=== PATIENT | female | born 1970 | race Caucasian/White ===

== ENCOUNTER 2022-12-24 14:08 | Emergency (ER) | payer BC, SELFPAY ==
[2022-12-24 14:12] VITALS: BP 115/74; PULSE 82; RESP 18; TEMP 36.3; O2SAT 100; BMI 18.5
--- NOTE | 2022-12-24 15:08 | ED_ITS ---
HPI - General Adult General Time Seen by Provider: 15:08 Date Seen: 12/24/22 Chief complaint: Nausea/Vomiting Stated complaint: Vomiting, lethargic, foggy eyes Time Seen by Provider: 12/24/22 15:05 Source: patient and RN notes reviewed Mode of arrival: ambulatory Limitations: no limitations History of Present Illness HPI narrative: This 52-year-old female was referred by clinic for head imaging and evaluation from symptoms earlier this week. She states she had been to [place] over the weekend, was down there for 4 days visiting her dad whom is in hospice for me tastatic kidney cancer. She does note that she has a sister who from brain cancer as well. She came home Tuesday, had a normal dinner Tuesday, went to bed. She woke in the night with severe headache, started having nausea vomiting and vomited all day and Tuesday. She did sleep Tuesday night. Tuesday she still was not feeling very good, was going to have a friend take her into urgent care. She ended up falling back asleep and when she woke up felt better, stayed home that day. She does note she is feeling somewhat shaky, she did have a bowel movement that was normal the day that she was vomiting all day on Tuesday. No fevers. Her head still does not feel right but it certainly not as bad as what she felt initially. There has been no incoordination, no falls, no motor weakness of any of her extremities. She feels like her vision is foggy, feels like it is both eyes. She has been able to increase her oral intake, no vomiting any longer. Maybe just a sense of slight nausea. She actually had an appointment at the clinic today, they contacted her about 2 hours later told her to come to the ER so that she would not have to be referred for imaging. She has not done any testing for COVID or influenza. Related Data Home Medications Medication Instructions Recorded Confirmed albuterol sulfate 90 mcg/actuation 2 puff inhalation Q6H PRN wheezing 12/24/22 12/24/22 aerosol inhaler budesonide-formoterol HFA 160 2 puff inhalation BID 12/24/22 12/24/22 mcg-4.5 mcg/actuation aerosol inhaler levothyroxine 112 mcg tablet 112 mcg PO QAM 12/24/22 12/24/22 liothyronine 5 mcg tablet 5 mcg PO DAILY 12/24/22 12/24/22 Allergies Allergy/AdvReac Type Severity Reaction Status Date / Time No Known Drug Allergies Allergy Verified 12/24/22 14:16 Review of Systems Status of ROS: Reports: 6 or more systems reviewed and unremarkable except as noted in History and below Exam Const: Vital Signs, click to edit/add: Vital Signs - 24 hr 12/24/22 14:12 Temperature 97.4 F L Pulse Rate [Right Pulse Oximeter] 82 Respiratory Rate 18 Blood Pressure [Ri ght Upper Arm] 115/74 Pulse Oximetry 100 Oxygen Delivery Me thod Room Air 52-year-old female is alert, interactive , very well kept, ambulatory in the ED with normal gait. Pupils equal round reactive, sclera clear, conjugate gaze. Symmetrical facial function. TMs canals normal. Oropharynx are mucosa, no exudates or erythema, normal posterior pharynx, dentition good repair. Neck is supple, no cervical adenopathy, no masses noted. Lungs are clear, good air entry, no wheezing or crackles. CV regular rate and rhythm, no murmur, normal S1-S2, no S3-S4. Abdomen is soft, flat, nondistended, no organomegaly, no masses. Strength is 5/5 and symmetric, normal light touch sensation, no tremors or dysmetria noted. Documenting provider has reviewed patient's vital signs: yes Course Course ED Course: Went over the differential with patient as far as headaches from infectious etiology to tumors to such entities as sinus veinous thrombosis. My overall impression is that she was suffering from a viral syndrome and just is not completely back to baseline. Discussed options. She would really like to proceed with a head CT, I do think it is reasonable in this situation she is quite worried and was told this was likely by the clinic. I doubt any concerning finding such as a brain bleed, infectious etiology such as meningitis or encephalitis, she is too clinically well at this time. As far as tumors, did discuss that they can present with nausea and vomiting but more frequently we see specific neurologic changes. It is always possible to have a small tumor that is not seen on initial plain imaging on CT. She does understand that. I do not feel we have evidence here for needing advanced imaging with an MRI. We did discuss blood work, she would like to do that, she did provide a urinalysis, will see if there is ketones or any evidence of infection. She declines an IV and IV fluids. Reevaluation(s) Time of Reevaluation #1: 17:53 Reevaluation #1: Have reviewed with patient her head CT, did give her copy of the report. We did review the finding of the right maxillary sinus changes. She is not having acute active symptoms but does note that she gets a little bit more chronic drainage out of the right naris. We did discuss maybe trying a nasal steroid, follow up with her primary for further discussion of this. We reviewed that her white count was low, could support a viral infection. She wanted to know if possibly her headache could have been a migraine, that is certainly in the differential with the migraine actually causing the nausea vomiting. It is also possible that she had a gastrointestinal illness that was associated with a severe migraine and she is improved. At this time, there is nothing further emergent to workup or to evaluate, she is improved from that initial illness/episode. Would have her follow up with her primary care provider. Did write down her white blood count, and she thinks that it may have come back low before. This is something that certainly could be rechecked in we have reviewed that. Vital Signs Vital signs: Initial Vital Signs Temperature 97.4 F L 12/24/22 14:12 Temperature Source Temporal Artery Scan 12/24/22 14:12 Pulse Rate 82 12/24/22 14:12 Respiratory Rate 18 12/24/22 14:12 Blood Pressure 115/74 12/24/22 14:12 Blood Pressure Mean 87 12/24/22 14:12 Blood Pressure Position Sitting 12/24/22 14:12 Pulse Oximetry 100 12/24/22 14:12 Oxygen Delivery Method Room Air 12/24/22 14:12 Vital Signs Temperature 97.4 F L 12/24/22 14:12 Pulse Rate 82 12/24/22 14:12 Respiratory Rate 18 12/24/22 14:12 Blood Pressure 115/74 12/24/22 14:12 Pulse Oximetry 100 12/24/22 14:12 Oxygen Delivery Method Room Air 12/24/22 14:12 Temperature 97.4 F L 12/24/22 14:12 Pulse Rate 82 12/24/22 14:12 Respiratory Rate 18 12/24/22 14:12 Blood Pressure 115/74 12/24/22 14:12 Pulse Oximetry 100 12/24/22 14:12 Oxygen Delivery Method Room Air 12/24/22 14:12 Medical Decision Making Lab Data Lab results reviewed: Yes I reviewed the patient's lab results Labs: Lab Results 12/24/22 12/24/22 12/24/22 Range/Units 15:23 15:30 15:55 WBC 3.94 L (4.50-11.00) K/uL RBC 4.55 (4.00-5.20) m/uL Hgb 14.0 (12.0-16.0) gm/dL Hct 41.2 (33.0-51.0) % MCV 91 (80-100) fL MCH 31 (26-34) pg MCHC 34 (32-36) gm/dL RDW Coeff of Negin 12.7 (11.5-15.5) % Plt Count 301 (140-440) K/uL Neut % (Auto) 45.4 (42.0-72.0) % Lymph % (Auto) 39.6 (20-44) % Sioux % (Auto) 12.2 H (0.0-11.0) % Eos % (Auto) 2.3 (0.0-7.0) % Baso % (Auto) 0.5 (0.0-3.0) % Neut # (Auto) 1.80 (1.7-7.0) K/uL Lymph # (Auto) 1.60 (0.90-2.90) K/uL Sioux # (Auto) 0.50 (0.00-0.90) K/UL Eos # (Auto) 0.10 (0.00-0.50) K/uL Baso # (Auto) 0.00 (0.00-0.30) K/uL Abs Immat Gran (auto) 0.00 (0.00-0.30) K/uL Imm/Tot Granulo (auto) 0.0 % Sodium 139 (135-149) mmol/L Potassium 3.9 (3.6-5.1) mmol/L Chloride 102 (96-114) mmol/L Carbon Dioxide 26 (20-32) mmol/L Anion Gap 11 (7-15) mEq/L BUN 14 (7-30) mg/dL Creatinine 0.6 (0.5-1.5) mg/dL Estimated Creat Clear 76.97 Estimated GFR 108 ml/min Glucose 82 (60-115) mg/dL Lactate 1.0 (0.5-1.9) mmol/L Calcium 9.4 (8.4-10.6) mg/dL Total Bilirubin 0.2 (0.1-1.5) mg/dL AST 40 H (12-35) U/L ALT 33 (4-35) U/L Alkaline Phosphatase 47 (40-150) U/L C-Reactive Protein < 0.5 L (0.5-1.0) mg/dL Total Protein 7.8 (6.0-8.3) g/dL Albumin 4.8 (3.3-5.0) g/dL Urine Color Yellow (Yellow) Urine Appearance Clear (Clear) Urine pH 7.5 (5.0-8.5) Ur Specific [place] 1.015 (1.000-1.030) Urine Protein Negative (Negative) Urine Glucose (UA) Negative (Negative) Urine Ketones Negative (Negative) Urine Blood 1+ A (Negative) Urine Nitrite Negative (Negative) Urine Bilirubin Negative (Negative) Urine Urobilinogen 0.2 (0.2-1.0) Ur Leukocyte Esterase Trace A (Negative) Urine RBC 2-5 A (0-2) Urine WBC 0-2 (0-5) Ur Squamous Epith Cells None (None-Few) Urine Bacteria None (None) SARS-CoV-2 (PCR) Negative SARS-CoV-2 (Negative) Influenza Type A (PCR) Negative PCR FLU A (Negative) Influenza Type B (PCR) Negative PCR FLU B (Negative) RSV (PCR) Negative PCR RSV (Negative) Imaging Data CT scan - head: Attestation: I have reviewed the pertinent imaging results. Radiologist's impression: Patient: BESS LEON Facility:?[facility] Patient ID:?[id number] Site Patient ID:?[id number]. Site :?[id number] Study:?CT Head W/O-12/24/2022 4:10:32 PM Ordering Physician:Landry Elliott Final Report: INDICATION: SEVERE Headache 4 DAYS AGO. TECHNIQUE: CT head without contrast. COMPARISON: None. FINDINGS: CSF spaces: Within normal limits for age. Brain parenchyma and extra-axial spaces: The plascencia-white differentiation is normal. No sign of mass, hemorrhage, or midline shift. No extra-axial fluid collection. Skull base and calvarium: There is opacification of the right maxillary sinus with mild hyperdensity may be related to inspissated mucus. Otherwise, the visualized paranasal sinuses and mastoid air cells demonstrate no acute or significant findings. The visualized orbits are grossly unremarkable. No skull fractures. IMPRESSION: No acute intracranial process identified. Right maxillary sinus disease. Please note that all CT scans at this facility use dose modulation, iterative reconstruction, and/or weight-based dosing when appropriate to reduce radiation dose to as low as reasonably achievable. Dictated by Mohinder Christiansen MD @ 12/24/2022 5:12:31 PM (Electronic Signature) Critical Care Time Critical Care Time Critical Care Time: No Discharge Plan Discharge Clinical Impression: Headache, Nausea & vomiting Patient Disposition: Home, Self-Care Condition: Stable Instructions: Acute Nausea and Vomiting (ED), General Headache (ED) Additional Instructions: At this time it is not completely clear if this was actually an illness or migraine. If you have further subsequent headaches like this, it certainly could stand that you have a migraine headache disorder. Please take the head CT results and review the low white blood count with her primary care provider at a follow-up appointment. Do recommend that you do schedule this. At some point in the near future, the white blood count could be rechecked to see if indeed it was running low today. This certainly would potentially support more of a viral illness that you are now recovering from. Given that you are overall improving, this is very reassuring. Certainly if you have return of your symptoms, have further concerns, would always recommend re-evaluation. Prescriptions: No Action liothyronine 5 mcg tablet 5 mcg PO DAILY albuterol sulfate 90 mcg/actuation HFA aerosol inhaler 2 puff inhalation Q6H PRN (Reason: wheezing) levothyroxine 112 mcg tablet 112 mcg PO QAM budesonide-formoterol 160-4.5 mcg/actuation HFA aerosol inhaler 2 puff inhalation BID Follow Up/Referrals: Provider,Not a Local [Primary Care Provider] - Stand Alone Forms: [employer] Info Instructions
--- NOTE | 2022-12-24 15:34 | CRLHL7_ITS ---
For Patients: As a result of the Century Cures Act, medical imaging exams and procedure reports are released immediately into your electronic medical record. You may view this report before your referring provider. If you have questions, please contact your health care provider. INDICATION: SEVERE Headache 4 DAYS AGO. TECHNIQUE: CT head without contrast. COMPARISON: None. FINDINGS: CSF spaces: Within normal limits for age. Brain parenchyma and extra-axial spaces: The plascencia-white differentiation is normal. No sign of mass, hemorrhage, or midline shift. No extra-axial fluid collection. Skull base and calvarium: There is opacification of the right maxillary sinus with mild hyperdensity may be related to inspissated mucus. Otherwise, the visualized paranasal sinuses and mastoid air cells demonstrate no acute or significant findings. The visualized orbits are grossly unremarkable. No skull fractures. IMPRESSION: No acute intracranial process identified. Right maxillary sinus disease. Please note that all CT scans at this facility use dose modulation, iterative reconstruction, and/or weight-based dosing when appropriate to reduce radiation dose to as low as reasonably achievable. Dictated by Mohinder Christiansen MD @ 12/24/2022 5:12:31 PM (Electronically Signed)
[2022-12-24 15:37] LABS: Appearance Urine Clear (Clear); Bilirubin Urine Negative (Negative); Blood Urine 1+ (Negative); Color Urine Yellow (Yellow); Glucose Urine Negative (Negative); Ketones Urine Negative (Negative); Leukocyte Esterase Urine Trace (Negative); Nitrite Urine Negative (Negative); Protein Urine Negative (Negative); Specific Gravity Urine 1.015 (1.000-1.030); Urobilinogen Urine 0.2 (0.2-1.0); pH Urine 7.5 (5.0-8.5)
[2022-12-24 16:07] LABS: WBC Urine 0-2 (0-5)
[2022-12-24 16:17] LABS: Basophils Percent Auto 0.5 % (0.0-3.0); Eosinophils Percent Auto 2.3 % (0.0-7.0); Hematocrit 41.2 % (33.0-51.0); Lymphocytes Percent Auto 39.6 % (20-44); Mean Corpuscular HGB Conc 34 gm/dL (32-36); Mean Corpuscular Hemoglobin 31 pg (26-34); Mean Corpuscular Volume 91 fL (80-100); Monocytes Percent Auto 12.2 % (0.0-11.0); Neutrophils Percent Auto 45.4 % (42.0-72.0); Platelet Count* 301 K/uL (140-440); RDW Coefficient of Variation % 12.7 % (11.5-15.5); Red Blood Count 4.55 m/uL (4.00-5.20); White Blood Count* 3.94 K/uL (4.50-11.00)
[2022-12-24 16:22] LABS: Sodium* 139 mmol/L (135-149)
[2022-12-24 16:24] LABS: Creatinine* 0.6 mg/dL (0.5-1.5); Est. Creatinine Clearance* 76.97; Estimated Glomerular Filt Rate 108 ml/min
[2022-12-24 16:25] LABS: Alanine Aminotransferase* 33 U/L (4-35); Calcium* 9.4 mg/dL (8.4-10.6); Glucose* 82 mg/dL (60-115); Total Protein* 7.8 g/dL (6.0-8.3)
[2022-12-24 16:34] LABS: PCR FLU A Negative PCR FLU A (Negative); PCR FLU B Negative PCR FLU B (Negative); PCR RSV Negative PCR RSV (Negative)
[2022-12-24 16:40] LABS: SARS PCR* Negative SARS-CoV-2 (Negative)
[2022-12-24 16:41] LABS: Slide Review Reflex No
[2022-12-24 17:15] LABS: Albumin* 4.8 g/dL (3.3-5.0); Chloride* 102 mmol/L (96-114)
[2022-12-24 17:16] LABS: Potassium* 3.9 mmol/L (3.6-5.1)
[2022-12-24 17:18] LABS: Alkaline Phosphatase* 47 U/L (40-150); Anion Gap 11 mEq/L (7-15); Aspartate Amino Transferase* 40 U/L (12-35); Bilirubin Total* 0.2 mg/dL (0.1-1.5); Blood Urea Nitrogen* 14 mg/dL (7-30); Carbon Dioxide* 26 mmol/L (20-32)
[2022-12-24 17:40] LABS: C Reactive Protein* < 0.5 mg/dL (0.5-1.0)
== END 2022-12-24 18:24 | disposition home or self-care (01) ==
PROVIDERS: Emergency Provider Family Medicine
DX: R51.9 Headache, unspecified (principal); R11.2 Nausea with vomiting, unspecified
CPT/HCPCS: 36415; 70450; 80053; 81001; 83605; 85025; 86140; 87631; 99284